=== PATIENT | male | born 1970 | race Caucasian/White ===

== ENCOUNTER 2022-07-25 01:30 | Emergency (ER) | payer SELFPAY ==
[2022-07-25] MEDS ORDERED: Water For Injection, Sterile 20 ML SDV INJECT ONE ×2 (01:32→02:57)
[2022-07-25] MEDS ORDERED: Ziprasidone Mesylate 20 MG Vial IM ONE (01:32)
[2022-07-25] MEDS ORDERED: Sodium Chloride 0.9% 20 ML SDV IV PRN (01:33)
[2022-07-25] MEDS ORDERED: Lactated Ringers 1,000 ML IV SCH (01:45)
[2022-07-25] MEDS ORDERED: Ziprasidone Mesylate 20 MG Vial ONE (01:53)
[2022-07-25 02:36] LABS: ACETAMINOPHEN <2.0 ug/mL; BLOOD UREA NITROGEN,BUN 21 mg/dL (7.0-18.0); CARBON DIOXIDE,CO2 26.5 mmol/L (21.0-32.0); CHLORIDE,CL 106 mmol/L (98-107); GLUCOSE RANDOM 97 mg/dL (74-106); LIPASE 159 U/L (73-393); POTASSIUM,K 3.9 mmol/L (3.5-5.1); SODIUM,NA 143 mmol/L (136-148)
[2022-07-25 02:37] LABS: ESTIMATED GFR 48 mL/min (>60)
[2022-07-25] MEDS ORDERED: Iopamidol 755 MG/ML 500 ML Multipack Bottle IVPUSH STA (02:42)
[2022-07-25] MEDS ORDERED: Ziprasidone Mesylate 20 MG Vial IM STA (02:57)
[2022-07-25] MEDS ORDERED: Lactated Ringers 1,000 ML IV STA (03:40)
== END 2022-07-25 10:03 ==
LOC: MW.ED 01:30
DX: R45.1 Restlessness and agitation (principal); Z20.822 Contact with and (suspected) exposure to COVID-19
CPT/HCPCS: 36415; 51702; 70450; 71260; 72125; 74177; 80053; 80143; 80179; 80307; 82947; 83690; 83735; 85025; 85610; 85730; 86900; 86901; 87635; 96360; 96361; 96372; 99285; J3486; J7120; Q9967; J3490; U0002

== ENCOUNTER 2022-09-30 23:10 | Emergency (ER) | payer SELFPAY ==
[2022-09-30] MEDS ORDERED: Octyl 2-Cyanoacrylate 1 g/1 mL 1 APPLIC PEN TOP ONE (23:15)
[2022-09-30] MEDS ORDERED: Octyl 2-Cyanoacrylate 1 g/1 mL 1 APPLIC PEN ONE (23:17)
== END 2022-09-30 23:31 | disposition home or self-care (01) ==
LOC: MW.ED 23:10
DX: S00.81XA Abrasion of other part of head, initial encounter (principal); S09.90XA Unspecified injury of head, initial encounter; W22.09XA Striking against other stationary object, initial encounter
CPT/HCPCS: 99283; A9270; 99282

== ENCOUNTER 2022-12-27 16:32 | Emergency (ER) | payer SELFPAY | END 2022-12-27 17:06 | disposition home or self-care (01) | LOC: MW.ED 16:32 | DX: Z13.9 Encounter for screening, unspecified (principal) | CPT/HCPCS: 99283 ==

== ENCOUNTER 2023-01-14 20:57 | Emergency (ER) | payer SELFPAY | END 2023-01-14 21:40 | LOC: MW.ED 20:57 | DX: R45.6 Violent behavior (principal); F10.120 Alcohol abuse with intoxication, uncomplicated; Z79.899 Other long term (current) drug therapy | CPT/HCPCS: 99282; 99284 ==

== ENCOUNTER 2023-01-14 23:05 | Emergency (ER) | payer SELFPAY | END 2023-01-14 23:18 | LOC: MW.ED 23:05 | DX: R45.1 Restlessness and agitation (principal) | CPT/HCPCS: 99283; 99284 ==

== ENCOUNTER 2023-05-25 16:26 | Emergency (ER) | payer SELFPAY ==
[2023-05-25] MEDS ORDERED: Sodium Chloride 0.9% 1,000 ML IV ONE (16:28)
[2023-05-25] MEDS ORDERED: Aspirin 81 MG Tab.Chew PO ONE (16:30)
[2023-05-25 16:37] LABS: BASOPHILS ABSOLUTE AUTO 0.07 K/uL (0.00-0.20); EOSINOPHILS ABSOLUTE AUTO 0.45 K/uL (0.00-0.45); EOSINOPHILS PERCENT AUTO 6.7 % (0.0-6.0); HEMATOCRIT 40.4 % (42.0-52.0); IMMATURE GRAN ABSOLUTE AUTO 0.01 K/uL (0.00-0.05); IMMATURE GRAN PERCENT AUTO 0.1 % (0.0-0.4); LYMPHOCYTES ABSOLUTE AUTO 2.43 K/uL (1.00-4.80); LYMPHOCYTES PERCENT AUTO 35.9 % (24.0-44.0); MEAN CORPUSCULAR HEMOGLOBIN 30.6 pg (28.0-32.0); MEAN CORPUSCULAR HGB CONC 34.7 g/dL (32.0-36.0); MEAN CORPUSCULAR VOLUME 88.2 fL (83.0-99.0); MEAN PLATELET VOLUME 8.9 fL (9.4-12.4); MONOCYTES ABSOLUTE AUTO 0.45 K/uL (0.00-0.80); MONOCYTES PERCENT AUTO 6.7 % (0.0-8.0); NEUTROPHILS ABSOLUTE AUTO 3.35 K/uL (1.80-7.70); NEUTROPHILS PERCENT AUTO 49.6 % (41.0-71.0); PLATELET COUNT,PLT 268 K/uL (150-400); RED BLOOD CELL COUNT 4.58 M/uL (4.52-5.90); WHITE BLOOD CELL COUNT,WBC 6.76 K/uL (3.9-11.3)
[2023-05-25 16:51] LABS: AMPHETAMINES SCREEN, URINE PRESUMPTIVE POSITIVE (CUTOFF=500); BARBITURATE SCREEN,URINE NEGATIVE (CUTOFF=200); BENZODIAZEPINES SCREEN,URINE NEGATIVE (CUTOFF=150); BUPRENORPHINE SCREEN,URINE NEGATIVE (CUTOFF=10); METHADONE SCREEN, URINE NEGATIVE (CUTOFF=200); METHAMPHETAMINES SCREEN, URINE PRESUMPTIVE POSITIVE (CUTOFF=500); OXYCODONE SCREEN,URINE NEGATIVE (CUT0FF=100); PCP SCREEN,URINE NEGATIVE (CUTOFF=25); THC SCREEN,URINE 20 NG/ML NEGATIVE (CUTOFF=50)
[2023-05-25 17:11] LABS: ALBUMIN 3.6 g/dL (3.4-5.0); BILIRUBIN TOTAL 0.3 mg/dL (0.2-1.0); CALCIUM 8.5 mg/dL (8.5-10.1); CARBON DIOXIDE,CO2 26.4 mmol/L (21.0-32.0); CREATININE 1.8 mg/dL (0.8-1.3); EST CRCL DRUG DOSING (CG) 46.44 mL/min; POTASSIUM,K 4.3 mmol/L (3.5-5.1); PROTEIN TOTAL,TP 7.3 g/dL (6.4-8.2)
[2023-05-25 17:15] LABS: D-DIMER QUANTITATIVE 0.24 mg/L FEU (0.00-0.50); INR 1.04 (0.86-1.11); PTT,PARTIAL THROMBOPLSTIN TIME 27.1 SEC (23.9-30.7)
== END 2023-05-25 18:13 | disposition home or self-care (01) ==
LOC: MW.ED 16:26
DX: R07.9 Chest pain, unspecified (principal); F10.90 Alcohol use, unspecified, uncomplicated; F15.921 Other stimulant use, unspecified with intoxication delirium
CPT/HCPCS: 36415; 70450; 71045; 72125; 80053; 80305; 80307; 83690; 84484; 85025; 85379; 85610; 85730; 93005; 99285; A9270; J7030

== ENCOUNTER 2023-06-08 19:22 | Emergency (ER) | payer OTHER | END 2023-06-08 20:04 | disposition home or self-care (01) | LOC: MW.ED 19:22 | DX: I73.00 Raynaud's syndrome without gangrene (principal) | CPT/HCPCS: 99284 ==

== ENCOUNTER 2023-06-15 17:13 | Emergency (ER) | payer SELFPAY ==
[2023-06-15] MEDS ORDERED: Sodium Chloride 0.9% 1,000 ML IV ONE ×2 (17:15→18:40)
[2023-06-15] MEDS ORDERED: Sodium Chloride 0.9% 10 ML Syringe FLUSH PRN (17:15)
[2023-06-15] MEDS ORDERED: Sodium Chloride 0.9% 2.5 ML Syringe FLUSH PRN (17:15)
[2023-06-15] MEDS ORDERED: Lidocaine 2% with EPINEPHrine 1:200,000 20 ML SDV INJECT ONE (17:17)
[2023-06-15] MEDS ORDERED: Lidocaine 1% with EPINEPHrine 1:200,000 30 ML SDV INFILT STA (17:19)
[2023-06-15 17:27] LABS: BASOPHILS ABSOLUTE AUTO 0.07 K/uL (0.00-0.20); BASOPHILS PERCENT AUTO 0.8 % (0.0-1.0); EOSINOPHILS ABSOLUTE AUTO 0.54 K/uL (0.00-0.45); EOSINOPHILS PERCENT AUTO 6.3 % (0.0-6.0); HEMATOCRIT 41.5 % (42.0-52.0); HEMOGLOBIN 14.4 g/dL (14.0-18.0); IMMATURE GRAN ABSOLUTE AUTO 0.03 K/uL (0.00-0.05); IMMATURE GRAN PERCENT AUTO 0.3 % (0.0-0.4); LYMPHOCYTES ABSOLUTE AUTO 2.57 K/uL (1.00-4.80); LYMPHOCYTES PERCENT AUTO 29.7 % (24.0-44.0); MEAN CORPUSCULAR HGB CONC 34.7 g/dL (32.0-36.0); MEAN CORPUSCULAR VOLUME 89.2 fL (83.0-99.0); MEAN PLATELET VOLUME 8.9 fL (9.4-12.4); MONOCYTES ABSOLUTE AUTO 0.64 K/uL (0.00-0.80); MONOCYTES PERCENT AUTO 7.4 % (0.0-8.0); NEUTROPHILS ABSOLUTE AUTO 4.79 K/uL (1.80-7.70); NEUTROPHILS PERCENT AUTO 55.5 % (41.0-71.0); PLATELET COUNT,PLT 275 K/uL (150-400); RED BLOOD CELL COUNT 4.65 M/uL (4.52-5.90); WHITE BLOOD CELL COUNT,WBC 8.64 K/uL (3.9-11.3)
[2023-06-15 17:28] LABS: BASE EXCESS VENOUS -0.3 (-2.0-3.0); PH,VENOUS 7.36 (7.31-7.41)
[2023-06-15 17:43] LABS: INR 1.06 (0.86-1.11); PTT,PARTIAL THROMBOPLSTIN TIME 27.9 SEC (23.9-30.7)
[2023-06-15 18:27] LABS: ACETAMINOPHEN <2.0 ug/mL; ALANINE AMINOTRANSFERASE,ALT 77 IU/L (14-63); ALBUMIN 3.8 g/dL (3.4-5.0); ALKALINE PHOSPHATASE 102 U/L (46-116); ASPARTATE AMNIOTRANSFERASE,AST 66 IU/L (15-37); BILIRUBIN TOTAL 0.2 mg/dL (0.2-1.0); BLOOD UREA NITROGEN,BUN 18 mg/dL (7.0-18.0); CALCIUM 8.4 mg/dL (8.5-10.1); CARBON DIOXIDE,CO2 24.8 mmol/L (21.0-32.0); CHLORIDE,CL 105 mmol/L (98-107); CREATINE KINASE,CK 786 U/L (26-308); EST CRCL DRUG DOSING (CG) 41.58 mL/min; GLUCOSE RANDOM 99 mg/dL (74-106); LIPASE 39 U/L (16-77); MAGNESIUM 2.1 mg/dL (1.8-2.4); POTASSIUM,K 3.7 mmol/L (3.5-5.1); PROTEIN TOTAL,TP 7.7 g/dL (6.4-8.2); SALICYLATE 1.2 mg/dL (0.0-20.0); SODIUM,NA 143 mmol/L (136-148); TSH ULTRASENSITIVE 0.84 uIU/mL (0.36-3.74)
[2023-06-15 18:36] LABS: ESTIMATED GFR 39 mL/min (>60); ETHANOL BLOOD MEDICAL 371 mg/dL
[2023-06-15] MEDS ORDERED: LORazepam 2 MG/ML SDV IVPUSH ONE (21:48)
[2023-06-15] MEDS ORDERED: Haloperidol Lactate 5 MG/ML SDV IM ONE (22:54)
[2023-06-16 05:49] LABS: AMPHETAMINES SCREEN, URINE PRESUMPTIVE POSITIVE (CUTOFF=500); BARBITURATE SCREEN,URINE NEGATIVE (CUTOFF=200); BENZODIAZEPINES SCREEN,URINE PRESUMPTIVE POSITIVE (CUTOFF=150); BUPRENORPHINE SCREEN,URINE NEGATIVE (CUTOFF=10); METHADONE SCREEN, URINE NEGATIVE (CUTOFF=200); METHAMPHETAMINES SCREEN, URINE PRESUMPTIVE POSITIVE (CUTOFF=500); OXYCODONE SCREEN,URINE NEGATIVE (CUT0FF=100); PCP SCREEN,URINE NEGATIVE (CUTOFF=25); THC SCREEN,URINE 20 NG/ML NEGATIVE (CUTOFF=50)
== END 2023-06-16 15:31 | disposition home or self-care (01) ==
LOC: MW.ED 17:13
DX: S02.32XA Fracture of orbital floor, left side, initial encounter for closed fracture (principal); S02.40DA Maxillary fracture, left side, initial encounter for closed fracture; S02.2XXA Fracture of nasal bones, initial encounter for closed fracture; S92.424A Nondisplaced fracture of distal phalanx of right great toe, initial encounter for closed fracture; S01.112A Laceration without foreign body of left eyelid and periocular area, initial encounter; X58.XXXA Exposure to other specified factors, initial encounter
CPT/HCPCS: 12011; 36415; 70450; 70486; 72125; 73630; 80053; 80143; 80179; 80305; 80307; 82550; 82803; 83690; 83735; 84443; 84484; 85025; 85610; 85730; 93005; 96361; 96372; 96374; 99285; J1630; J2060; J3490; J7030; 12001; 93010; 99284

== ENCOUNTER 2023-12-04 00:20 | Emergency (ER) | payer SELFPAY ==
[2023-12-04 00:50] LABS: BASOPHILS ABSOLUTE AUTO 0.07 K/uL (0.00-0.20); BASOPHILS PERCENT AUTO 0.5 % (0.0-1.0); EOSINOPHILS ABSOLUTE AUTO 0.05 K/uL (0.00-0.45); EOSINOPHILS PERCENT AUTO 0.4 % (0.0-6.0); HEMATOCRIT 41.9 % (42.0-52.0); HEMOGLOBIN 14.5 g/dL (14.0-18.0); IMMATURE GRAN ABSOLUTE AUTO 0.04 K/uL (0.00-0.05); IMMATURE GRAN PERCENT AUTO 0.3 % (0.0-0.4); LYMPHOCYTES ABSOLUTE AUTO 1.32 K/uL (1.00-4.80); LYMPHOCYTES PERCENT AUTO 9.8 % (24.0-44.0); MEAN CORPUSCULAR HEMOGLOBIN 30.7 pg (28.0-32.0); MEAN CORPUSCULAR HGB CONC 34.6 g/dL (32.0-36.0); MEAN CORPUSCULAR VOLUME 88.8 fL (83.0-99.0); MEAN PLATELET VOLUME 9.1 fL (9.4-12.4); MONOCYTES ABSOLUTE AUTO 0.78 K/uL (0.00-0.80); MONOCYTES PERCENT AUTO 5.8 % (0.0-8.0); NEUTROPHILS ABSOLUTE AUTO 11.23 K/uL (1.80-7.70); NEUTROPHILS PERCENT AUTO 83.2 % (41.0-71.0); PLATELET COUNT,PLT 228 K/uL (150-400); RED BLOOD CELL COUNT 4.72 M/uL (4.52-5.90); WHITE BLOOD CELL COUNT,WBC 13.49 K/uL (3.9-11.3)
[2023-12-04] MEDS: Sodium Chloride 0.9% 1,000 ML IV ONE (00:53)
[2023-12-04] MEDS: Sodium Chloride 0.9% 2.5 ML Syringe FLUSH PRN (00:54)
[2023-12-04] MEDS: Sodium Chloride 0.9% 10 ML Syringe FLUSH PRN (00:54)
[2023-12-04] MEDS: Diphtheria,Pertussis(Acell),Tetanus Vaccine 0.5 ML Syringe IM ONE (00:54)
[2023-12-04 01:22] LABS: A/G RATIO 1.2 (0.9-1.6); ACETAMINOPHEN <2.0 ug/mL; ALANINE AMINOTRANSFERASE,ALT 81 IU/L (14-63); ALBUMIN 4.4 g/dL (3.4-5.0); ALKALINE PHOSPHATASE 81 U/L (46-116); ASPARTATE AMNIOTRANSFERASE,AST 95 IU/L (15-37); BILIRUBIN TOTAL 0.7 mg/dL (0.2-1.0); BLOOD UREA NITROGEN,BUN 40 mg/dL (7.0-18.0); CALCIUM 8.8 mg/dL (8.5-10.1); CARBON DIOXIDE,CO2 22.7 mmol/L (21.0-32.0); CHLORIDE,CL 101 mmol/L (98-107); CREATININE 2.8 mg/dL (0.8-1.3); EST CRCL DRUG DOSING (CG) 28.85 mL/min; ETHANOL BLOOD MEDICAL 137 mg/dL; GLUCOSE RANDOM 86 mg/dL (74-106); POTASSIUM,K 4.2 mmol/L (3.5-5.1); SALICYLATE 0.8 mg/dL (0.0-20.0); SODIUM,NA 137 mmol/L (136-148); TSH ULTRASENSITIVE 5.49 uIU/mL (0.36-3.74)
[2023-12-04 01:23] LABS: ESTIMATED GFR 26 mL/min (>60)
[2023-12-04 01:37] LABS: AMPHETAMINES SCREEN, URINE PRESUMPTIVE POSITIVE (CUTOFF=500); BARBITURATE SCREEN,URINE NEGATIVE (CUTOFF=200); BENZODIAZEPINES SCREEN,URINE NEGATIVE (CUTOFF=150); BUPRENORPHINE SCREEN,URINE NEGATIVE (CUTOFF=10); METHADONE SCREEN, URINE NEGATIVE (CUTOFF=200); METHAMPHETAMINES SCREEN, URINE PRESUMPTIVE POSITIVE (CUTOFF=500); OXYCODONE SCREEN,URINE NEGATIVE (CUT0FF=100); PCP SCREEN,URINE NEGATIVE (CUTOFF=25); THC SCREEN,URINE 20 NG/ML NEGATIVE (CUTOFF=50)
[2023-12-04 01:43] LABS: T4 FREE 1.32 ng/dL (0.76-1.46)
== END 2023-12-04 05:25 | disposition home or self-care (01) ==
LOC: MW.ED 00:20
DX: S09.90XA Unspecified injury of head, initial encounter (principal); S01.01XA Laceration without foreign body of scalp, initial encounter; F10.129 Alcohol abuse with intoxication, unspecified; F15.10 Other stimulant abuse, uncomplicated; Z23 Encounter for immunization; Y90.5 Blood alcohol level of 100-119 mg/100 ml; Y00.XXXA Assault by blunt object, initial encounter
CPT/HCPCS: 36415; 80053; 80143; 80179; 80305; 80307; 84439; 84443; 85025; 90471; 90715; 93005; 99285; J3490; J7030

== ENCOUNTER 2023-12-26 23:42 | Emergency (ER) | payer SELFPAY ==
[2023-12-27] MEDS: OLANZapine 5 MG Tab.DIS PO ONE (00:06)
== END 2023-12-27 00:24 ==
LOC: MW.ED 23:42
DX: S00.81XA Abrasion of other part of head, initial encounter (principal); F19.10 Other psychoactive substance abuse, uncomplicated; Z75.8 Other problems related to medical facilities and other health care; W22.8XXA Striking against or struck by other objects, initial encounter
CPT/HCPCS: 99283; A9270